=== PATIENT | female | born 1970 | race Caucasian/White ===

== ENCOUNTER 2016-05-23 10:25 | Emergency (ER) | payer SELFPAY ==
[~2016-05-23] VITALS: Ht 157.5 cm; Wt 69.3 kg
[~2016-05-23 10:25] MED LIST: CIPR500T2 PO; LORT5TAB PO; Z.0.NO CURRENT MEDS; ZOFR4TAB3 SL
[2016-05-23 10:35] VITALS: BP 134/95; PULSE 76; RESP 16; TEMP 97.9; O2SAT 97
[2016-05-23] MEDS ORDERED: CLIN1CAP6 PO (11:12)
[2016-05-23] MEDS ORDERED: IBUP800T23 PO (11:12)
[2016-05-23] MEDS ORDERED: PERI0.126 SWISH-SPIT (11:12)
[2016-05-23] MEDS ORDERED: traMADol HCL 50 MG TAB PO ONE (11:15)
--- NOTE | 2016-05-23 11:18 | PD ---
HPI Chief Complaint: Oral / Dental Pain or Problem Time Seen by Provider: 11:12 Travel History International Travel<30 days: No Contact w/Intl Traveler<30days: No Traveled to known affect area: No History of Present Illness HPI 46-year-old female presents to the emergency room for evaluation of right lower dental pain and swelling. Pain started one week ago. Swelling started yesterday. Pain is worsened with chewing and drinking. Improve slightly with Tylenol and ibuprofen. She denies any drainage, fever, nausea, vomiting, difficulty breathing, or dysphasia. Reports associated chills last night. She went to an emergency dental clinic but they were unable to get her in so she came to the emergency room. She has an appointment with a dentist for follow- up. PFSH Past Medical History Diminished Hearing: No Migraines: Yes Influenza Vaccination: No ?: Not LMP: apr Social History Alcohol Use: Yes (OCC) Tobacco Use: Yes (1 PPD) Substance Use: No Allergies-Medications (Allergen,Severity, Reaction): Coded Allergies: No Known Allergies (Verified , 05/23/16) Reported Meds & Prescriptions Reported Meds & Active Scripts Active Peridex Liq (Chlorhexidine Gluconate (Mouth) Liq) 0.12% Soln 15 Ml SWISH-SPIT BID Clindamycin (Clindamycin HCl) 300 Mg Cap 300 Mg PO Q6HR 10 Days Review of Systems Except as stated in HPI: all other systems reviewed are Neg Physical Exam Narrative GENERAL: Well-nourished, well-developed female in no acute distress. Afebrile. Ambulatory. SKIN: Warm and dry. HEAD: Normocephalic. EYES: No scleral icterus. No injection or drainage. NECK: Supple, trachea midline. No JVD or lymphadenopathy. DENTAL: Mild to moderate decay throughout. Multiple fillings in place. No significant erythema or obvious abscess to drain. No malocclusion. No submental, submandibular, or buccal induration. Mild right-sided buccal edema. Data Data Last Documented VS Vital Signs Date Time Temp Pulse Resp B/P Pulse Ox O2 Delivery O2 Flow Rate FiO2 05/23/16 10:35 97.9 76 16 134/95 97 Orders Tramadol (Ultram) (05/23/16 11:15) [facility] Medical Decision Making Medical Screen Exam Complete: Yes Emergency Medical Condition: Yes Medical Record Reviewed: Yes Differential Diagnosis Dentalgia versus dental decay versus gingivitis Narrative Course 46-year-old female presents to the emergency room for evaluation of right lower dental pain and edema. Physical exam reveals mild to moderate decay throughout. Multiple fillings in place. No significant erythema or obvious abscess to drain. Mild right-sided buccal edema. No evidence of Esau's. Patient given tramadol in the emergency room. Discharged with prescriptions for clindamycin, Peridex oral rinse, and person. Told to follow up with her dentist or return for worsening symptoms. She understands and agrees to plan. Diagnosis Primary Impression: Dental abscess Referrals: Dentist Patient Instructions: Dental Abscess (ED), General Instructions Additional Instructions: Rest and drink plenty of fluids. Clindamycin as directed, until gone. Peridex oral rinse as directed. Take Tylenol and/or ibuprofen with food as directed, as needed for pain. Apply ice to the affected area for 20 minutes at a time, as needed for pain and swelling. Follow-up with a dentist. Return to the emergency room for worsening symptoms. Med/Other Pt SpecificInfo: Prescription(s) given Scripts Ibuprofen 800 Mg Ceo900 Mg PO Q8H PRN (PAIN SCALE 1 TO 10) #21 TAB Ref 0 Prov:Madi Tinoco MD 05/23/16 Chlorhexidine Gluconate (Mouth) Liq (Peridex Liq)0.12% Soln15 Ml SWISH-SPIT BID #473 ML Ref 0 Prov:Madi Tinoco MD 05/23/16 Clindamycin 300 Mg Jfx989 Mg PO Q6HR 10 Days Ref 0 Prov:Madi Tinoco MD 05/23/16 Disposition: 01 DISCHARGE HOME Condition: Stable Ching Barrera May 23, 2016 11:18
== END 2016-05-23 11:58 | disposition home or self-care (01) ==
LOC: PHEFT 10:25
DX: F17.210 Nicotine dependence, cigarettes, uncomplicated (principal); K04.7 Periapical abscess without sinus; K02.9 Dental caries, unspecified
CPT/HCPCS: 99282

== ENCOUNTER 2016-05-24 23:06 | Inpatient (IN) | payer SELFPAY ==
[~2016-05-24] VITALS: Ht 157.5 cm; Wt 69.0 kg
[~2016-05-24 23:06] MED LIST changes: +CLIN1CAP6 PO; +IBUP800T23 PO; +PERI0.126 SWISH-SPIT
[2016-05-24 23:09] VITALS: BP 146/88; PULSE 85; RESP 14; TEMP 98.6; O2SAT 97
[2016-05-25] MEDS ORDERED: SODIUM CHLOR 0.9% 1000 ML INJ 1,000 ML IV SCH ×3 (00:49→03:35)
--- NOTE | 2016-05-25 00:56 | PD ---
HPI Chief Complaint: Oral / Dental Pain or Problem Time Seen by Provider: 00:45 Travel History International Travel<30 days: No Contact w/Intl Traveler<30days: No Traveled to known affect area: No History of Present Illness HPI 46-year-old female presents for evaluation of dental infection. She reports that on May 22 she developed a toothache in the right mandibular molar region. She was seen at [facility] on May 23 prescribed clindamycin 300 mg QID, peridex solution which She which she has been using. She reports that the swelling and pain has worsened which prompted evaluation. She denies pain in her right jaw line which radiates down the neck. She endorses occasional chills, no objective fevers. She has been taking the medication as prescribed. Denies any history of diabetes, immunocompromise. Denies any chance of . She has no local primary care physician. No other complaints at this time. PFSH Past Medical History Diminished Hearing: No Immunizations Current: Yes Migraines: Yes ?: Not LMP: 05/05/16 Past Surgical History Surgical History: No Previous Surgery Social History Alcohol Use: Yes (OCC) Tobacco Use: Yes (2 PPD) Substance Use: No Allergies-Medications (Allergen,Severity, Reaction): Coded Allergies: No Known Allergies (Verified , 05/25/16) Reported Meds & Prescriptions Reported Meds & Active Scripts Active Ibuprofen 800 Mg Tab 800 Mg PO Q8H PRN Peridex Liq (Chlorhexidine Gluconate (Mouth) Liq) 0.12% Soln 15 Ml SWISH-SPIT BID Clindamycin (Clindamycin HCl) 300 Mg Cap 300 Mg PO Q6HR 10 Days Review of Systems Except as stated in HPI: all other systems reviewed are Neg Physical Exam Narrative GENERAL: Well-developed well-nourished female in no acute distress SKIN: Warm and dry. HEAD: Atraumatic. Normocephalic. EYES: Pupils equal and round. No scleral icterus. No injection or drainage. ENT: No nasal bleeding or discharge. Mucous membranes pink and moist. There is soft tissue swelling in the right mandibular gingival and facial region. There is erythema along the right mandible and along the anterior neck. Tender anterior cervical lymph nodes are present. Trismus makes examination of the oral compartment difficult. There is no sublingual edema or tenderness. There is no stridor, drooling, muffled voice. There is tenderness to palpation along the right mandibular gum line. NECK: Trachea midline. No JVD. CARDIOVASCULAR: Regular rate and rhythm. No murmur appreciated. RESPIRATORY: No accessory muscle use. Clear to auscultation. Breath sounds equal bilaterally. GASTROINTESTINAL: Abdomen soft, non-tender, nondistended. Hepatic and splenic margins not palpable. MUSCULOSKELETAL: No obvious deformities. NEUROLOGICAL: Awake and alert. No obvious cranial nerve deficits. Motor grossly within normal limits. Normal speech. Data Data Last Documented VS Vital Signs Date Time Temp Pulse Resp B/P Pulse Ox O2 Delivery O2 Flow Rate FiO2 05/25/16 01:38 62 18 130/77 97 Room Air 05/24/16 23:[address] Soft Tiss Neck W Iv Cont (05/25/16 ) Complete Blood Count With Diff (05/25/16 00:49) Comprehensive Metabolic Panel (05/25/16 00:49) Prothrombin Time / Inr (Pt) (05/25/16 00:49) Act Partial Throm Time (Ptt) (05/25/16 00:49) Lactic Acid Sepsis Protocol (05/25/16 00:49) Blood Culture (05/25/16 00:49) Sodium Chlor 0.9% 1000 Ml Inj (Ns 1000 M (05/25/16 00:49) Sodium Chlor 0.9% 1000 Ml Inj (Ns 1000 M (05/25/16 00:49) Clindamycin Inj (Cleocin Inj) (05/25/16 01:00) Dexamethasone Inj (Decadron Inj) (05/25/16 01:00) Iohexol 350 Inj (Omnipaque 350 Inj) (05/25/16 02:35) Admit Order (Ed Use Only) (05/25/16 03:36) Admit To Inpatient (05/25/16 ) Vital Signs (Adult) Q4H (05/25/16 03:35) Activity Oob Ad Kailee (05/25/16 03:35) Diet Regular Basic (05/25/16 Breakfast) Sodium Chlor 0.9% 1000 Ml Inj (Ns 1000 M (05/25/16 03:35) Sodium Chloride 0.9% Flush (Ns Flush) (05/25/16 03:45) Sodium Chloride 0.9% Flush (Ns Flush) (05/25/16 09:00) Ondansetron Inj (Zofran Inj) (05/25/16 03:45) Bisacodyl Supp (Dulcolax Supp) (05/25/16 03:45) Comprehensive Metabolic Panel (05/26/16 06:00) Complete Blood Count With Diff (05/26/16 06:00) Scd Bilateral/Knee High MILY.BID (05/25/16 03:35) Mal Bilateral/Knee High MILY.QSHIFT (05/25/16 03:35) Acetaminophen (Tylenol) (05/25/16 03:45) Acetamin-Hydrocod 325-5 Mg ([place] 5-325 (05/25/16 03:45) Morphine Inj (Morphine Inj) (05/25/16 03:45) Inpatient Certification (05/25/16 ) Labs Laboratory Tests Test 05/25/16 05/25/16 00:05 01:00 Lactic Acid Level 0.6 mmol/L White Blood Count 9.7 TH/MM3 Red Blood Count 4.22 MIL/MM3 Hemoglobin 13.2 GM/DL Hematocrit 37.7 % Mean Corpuscular Volume 89.3 FL Mean Corpuscular Hemoglobin 31.4 PG Mean Corpuscular Hemoglobin 35.1 % Concent Red Cell Distribution Width 13.6 % Platelet Count 225 TH/MM3 Mean Platelet Volume 9.1 FL Neutrophils (%) (Auto) 68.2 % Lymphocytes (%) (Auto) 19.6 % Monocytes (%) (Auto) 10.3 % Eosinophils (%) (Auto) 1.4 % Basophils (%) (Auto) 0.5 % Neutrophils # (Auto) 6.6 TH/MM3 Lymphocytes # (Auto) 1.9 TH/MM3 Monocytes # (Auto) 1.0 TH/MM3 Eosinophils # (Auto) 0.1 TH/MM3 Basophils # (Auto) 0.0 TH/MM3 CBC Comment DIFF FINAL Differential Comment Prothrombin Time 9.7 SEC Prothromb Time International 0.9 RATIO Ratio Activated Partial 27.3 SEC Thromboplast Time Sodium Level 140 MEQ/L Potassium Level 3.9 MEQ/L Chloride Level 107 MEQ/L Carbon Dioxide Level 26.1 MEQ/L Anion Gap 7 MEQ/L Blood Urea Nitrogen 13 MG/DL Creatinine 0.87 MG/DL Estimat Glomerular Filtration 71 ML/MIN Rate Random Glucose 97 MG/DL Calcium Level 8.9 MG/DL Total Bilirubin 0.3 MG/DL Aspartate Amino Transf 8 U/L (AST/SGOT) Alanine Aminotransferase 24 U/L (ALT/SGPT) Alkaline Phosphatase 59 U/L Total Protein 7.0 GM/DL Albumin 3.6 GM/DL [facility] Medical Decision Making Medical Screen Exam Complete: Yes Emergency Medical Condition: Yes Medical Record Reviewed: Yes Interpretation(s) CT soft tissue neck with contrast CONCLUSION: Soft tissue thickening adjacent to the anterior right mandible without evidence of drainable fluid collection. No bony destruction of the mandible. Irregular shape hypodense lesion in the right lower thyroid. CBC unremarkable CMP unremarkable, lactic acid 0.6 Differential Diagnosis Periodontal abscess, submandibular abscess, Esau angina, facial cellulitis, sepsis Narrative Course 46-year-old female presents with worsening soft tissue swelling, redness and pain in the right mandibular and neck region despite being on outpatient clindamycin treatment for the past 1.5 days. On examination she has a significant amount of soft tissue swelling the right mandibular region, erythema of the skin on the anterior neck, trismus and tenderness to palpation to the right gingival mucosa. Plan is for basic lab work, blood cultures, CT soft tissue neck with contrast. IV fluids, Decadron and clindamycin have been initiated. Abrasions lab work and imaging studies have been reviewed and found to be reassuring with no discrete drainable abscess formation. I'm concerned because the patient's symptoms have been worsening despite maximal outpatient oral antibiotic treatment. Therefore the patient will be admitted for failed outpatient therapy of cellulitis. Diagnosis Primary Impression: Cellulitis Qualified Code: L03.221 - Cellulitis of neck Additional Impression: Dental infection Admitting Information Admitting Physician Requests: Admit Surjit Patel May 25, 2016 00:55
[2016-05-25] MEDS ORDERED: CLINDAMYCIN INJ 600 MG in SODIUM CHLORIDE 0.9% INJ 100 ML IV ONE (01:00)
[2016-05-25] MEDS ORDERED: DEXAMETHASONE SOD PHOS 4 MG/ML VIAL IV PUSH ONE (01:00)
[2016-05-25 01:22] LABS: AUTOMATED NEUTROPHIL # 6.6 TH/MM3 (1.8-7.7); BASOPHIL % 0.5 % (0.0-2.0); EOSINOPHIL # 0.1 TH/MM3 (0-0.4); EOSINOPHIL % 1.4 % (0.0-4.0); HEMATOCRIT 37.7 % (35.0-46.0); HEMO FLAGS DIFF FINAL; LYMPH % 19.6 % (9.0-44.0); LYMPHOCYTE # 1.9 TH/MM3 (1.0-4.8); MEAN CELL VOLUME 89.3 FL (80.0-100.0); MEAN CORPUSCULAR HEMOGLOBIN 31.4 PG (27.0-34.0); MEAN CORPUSCULAR HGB CONC 35.1 % (32.0-36.0); MONO % 10.3 % (0.0-8.0); NEUT % 68.2 % (16.0-70.0); PLATELET COUNT 225 TH/MM3 (150-450); RED BLOOD COUNT 4.22 MIL/MM3 (4.00-5.30); RED CELL DISTRIBUTION WIDTH 13.6 % (11.6-17.2); WHITE BLOOD COUNT 9.7 TH/MM3 (4.0-11.0)
[2016-05-25 01:29] LABS: APTT (PATIENT) 27.3 SEC (24.3-30.1); INTERNATIONAL NORMALIZED RATIO 0.9 RATIO; PROTHROMBIN TIME - PATIENT 9.7 SEC (9.8-11.6)
[2016-05-25 01:38] VITALS: BP 130/77; PULSE 62; RESP 18; O2SAT 97
[2016-05-25 01:39] LABS: ALT (GPT) 24 U/L (10-53); ANION GAP 7 MEQ/L (5-15); AST (GOT) 8 U/L (15-37); BICARBONATE 26.1 MEQ/L (21.0-32.0); BLOOD UREA NITROGEN 13 MG/DL (7-18); CHLORIDE 107 MEQ/L (98-107); GLOMERULAR FILTRATION RATE 71 ML/MIN (>89); POTASSIUM 3.9 MEQ/L (3.5-5.1); SODIUM (NA) 140 MEQ/L (136-145)
[2016-05-25 01:41] LABS: ALKALINE PHOSPHATASE 59 U/L (45-117); TOTAL BILIRUBIN ADULT 0.3 MG/DL (0.2-1.0)
[2016-05-25] MEDS ORDERED: IOHEXOL 350 MG/ML 10 ML VIAL (for RAD DIAG) IV ONE (02:35)
--- NOTE | 2016-05-25 03:24 | RADRPT ---
EXAM DATE/TIME: 05/25/2016 02:33 [place] COMPARISON: No previous studies available for comparison. INDICATIONS : Right side facial and neck swelling following tooth pain. IV CONTRAST: 70 cc Omnipaque 350 (iohexol) IV RADIATION DOSE: 15.61 CTDIvol (mGy) MEDICAL HISTORY : None SURGICAL HISTORY : None. ENCOUNTER: Initial ACUITY: 3 days PAIN SCALE: 1/10 LOCATION: Right neck TECHNIQUE: Volumetric scanning of the neck was performed. Using automated exposure control and adjustment of th e mA and/or kV according to patient size, radiation dose was kept as low as reasonably achievable to obtain optimal diagnostic quality images. FINDINGS: The prevertebral soft tissues are normal in thickness. There several bilateral neck nodes in the lat eral compartment which measure 1 cm or less. There is a solitary no superficial to the right sternoc leidomastoid muscle measuring 8 mm. Several bilateral submandibular nodes measure up to 1.5 cm. The re is soft tissue thickening superficial to the anterior body of the right mandible. No periosteal d estruction is seen. No radiopaque foreign bodies. The parotid glands are symmetric in size. There is a low density irregular shaped lesion in the lower pole of the right lobe of the thyroid gland whi ch measures up to 1.5 cm. CONCLUSION: Soft tissue thickening adjacent to the anterior right mandible without evidence of drainable fluid co llection. No bony destruction of the mandible. Irregular shape hypodense lesion in the right lower thyroid. Ramana Etienne MD on May 25, 2016 at 3:08 Board Certified Radiologist. This report was verified electronically.
[2016-05-25] MEDS ORDERED: BISACODYL 10 MG SUPP PR PRN (03:45)
[2016-05-25] MEDS ORDERED: ACETAMINOPHEN/HYDROcodone 325 MG/5 MG TAB PO PRN (03:45)
[2016-05-25] MEDS ORDERED: ONDANSETRON HCL 4 MG/2 ML VIAL IVP PRN (03:45)
[2016-05-25] MEDS ORDERED: MORPHINE SULFATE 4 MG/ML INJ IV PRN (03:45)
[2016-05-25] MEDS ORDERED: ACETAMINOPHEN 325 MG TAB PO PRN (03:45)
[2016-05-25] MEDS ORDERED: SODIUM CHLORIDE 0.9% FLUSH 5 ML FLUSH FLUSH PRN (03:45)
--- NOTE | 2016-05-25 05:01 | HHI.HP ---
HPI Service [facility] Primary Care Physician No Primary Care Physician Admission Diagnosis Cellulitis, dental infection, failed outpatient therapy Diagnoses: (1) Dental abscess Diagnosis: Principal (2) Cellulitis Diagnosis: Principal (3) Failure of outpatient treatment Diagnosis: Principal (4) Tobacco abuse Diagnosis: Principal Travel History International Travel<30 Days: No Contact w/Intl Traveler <30 Da: No Traveled to Known Affected Are: No History of Present Illness This is a 46-year-old female with no significant PMH of confusion ER with complaints of right-sided facial and dental pain for approx 1wk. Seen in ER on 05/23/16 for similar symptoms, found to have dental infection and d/c'd home w/ Rx for Peridez, Clindamycin 300mg q6h and Ibuprofen w/ instructions to follow w / Dentist as outpatient. Returns to ER w/ worsening symptoms, reports compliance w/ medications. Denies fever or chills. On arrival, BP 134/95, HR 76, O2 sat 97% on RA, Afebrile. CBC unremarkable. Chemistry unremarkable. CT Neck soft tissue thickening adjacent to the anterior right mandible, no evidence of drainable fluid collection. S/p IV Clinda and Blood Cultures in ER. Review of Systems Other ROS: 14 point review of systems otherwise negative. Past Family Social History Past Medical History PMH: None Past Surgical History PAST SURGICAL HISTORY: None Allergies: Coded Allergies: No Known Allergies (Verified , 05/25/16) Family History PAST FAMILY HISTORY: Reviewed. No h/o DM or CAD Social History PAST SOCIAL HISTORY: Occasional alcohol. Smokes 1/2ppd. Negative for drugs. Physical Exam Vital Signs Vital Signs Date Time Temp Pulse Resp B/P Pulse Ox O2 Delivery O2 Flow Rate FiO2 05/25/16 01:38 62 18 130/77 97 Room Air 05/24/16 23:09 98.6 85 14 146/88 97 Room Air Physical Exam PE: GENERAL: Middle-aged female in no acute distress. HEENT: PERRLA, EOMI. No scleral icterus or conjunctival pallor. No lid lag or facial droop. Right facial swelling/erythema mandibular region, tenderness to palpation. CARDIOVASCULAR: Regular rate and rhythm. No obvious murmurs to auscultation. No chest tenderness to palpation. RESPIRATORY: No obvious rhonchi or wheezing. Clear to auscultation. Breath sounds equal bilaterally. GASTROINTESTINAL: Abdomen soft, non-tender, nondistended. BS normal. MUSCULOSKELETAL: Extremities without clubbing, cyanosis, or edema. No obvious deformities. NEUROLOGICAL: Awake, alert and oriented x4. No focal neurologic deficits. Moving both upper and lower extremities spontaneously. Laboratory Laboratory Tests Test 05/25/16 05/25/16 00:05 01:00 Lactic Acid Level 0.6 White Blood Count 9.7 Red Blood Count 4.22 Hemoglobin 13.2 Hematocrit 37.7 Mean Corpuscular Volume 89.3 Mean Corpuscular Hemoglobin 31.4 Mean Corpuscular Hemoglobin 35.1 Concent Red Cell Distribution Width 13.6 Platelet Count 225 Mean Platelet Volume 9.1 Neutrophils (%) (Auto) 68.2 Lymphocytes (%) (Auto) 19.6 Monocytes (%) (Auto) 10.3 Eosinophils (%) (Auto) 1.4 Basophils (%) (Auto) 0.5 Neutrophils # (Auto) 6.6 Lymphocytes # (Auto) 1.9 Monocytes # (Auto) 1.0 Eosinophils # (Auto) 0.1 Basophils # (Auto) 0.0 CBC Comment DIFF FINAL Differential Comment Prothrombin Time 9.7 Prothromb Time International 0.9 Ratio Activated Partial 27.3 Thromboplast Time Sodium Level 140 Potassium Level 3.9 Chloride Level 107 Carbon Dioxide Level 26.1 Anion Gap 7 Blood Urea Nitrogen 13 Creatinine 0.87 Estimat Glomerular Filtration 71 Rate Random Glucose 97 Calcium Level 8.9 Total Bilirubin 0.3 Aspartate Amino Transf 8 (AST/SGOT) Alanine Aminotransferase 24 (ALT/SGPT) Alkaline Phosphatase 59 Total Protein 7.0 Albumin 3.6 Date/Time Procedure Status Source Growth 05/25/16 01:00 Aerobic Blood Culture Received Blood Peripheral Pending 05/25/16 01:00 Anaerobic Blood Culture Received Blood Peripheral Pending Result Diagram: 05/25/169905/25/1699 Assessment and Plan Problem List: (1) Dental abscess ICD Code: K04.7 Status: Acute (2) Cellulitis ICD Code: L03.90 Status: Acute (3) Failure of outpatient treatment ICD Code: Z78.9 Status: Acute (4) Tobacco abuse ICD Code: Z72.0 Status: Acute Assessment and Plan A/P: 1. Dental Abscess/Facial Cellulitis: symptoms ongoing/progressive for approx 1wk. CT Neck w/ soft tissue thickening adjacent to anterior right mandible, no drainable fluid collection, images reviewed by me. S/p IV Decadron, IV Clinda and Blood Cultures in ER. Continue w/ IV Abx, Follow up cultures. Analgesics as needed. 2. Failed Outpatient Tx: Seen in ER 05/23/16 for similar symptoms, d/c'd on Clinda 300mg po q6h w/ progression of infection. 3. Tobacco Abuse: Pt counselled. NicoDerm prn if needed. 4. DVT Prophylaxis: SCD/Teds. 5. Social work for d/c planning as needed. 6. Case discussed w/ ER physician at length. Physician Certification 2 Midnight Certification Type: Admission for Inpatient Services Order for Inpatient Services The services are ordered in accordance with Medicare regulations or non- Medicare payer requirements, as applicable. In the case of services not specified as inpatient-only, they are appropriately provided as inpatient services in accordance with the 2-midnight benchmark. Estimated LOS (days): 2 days is the estimated time the patient will need to remain in the hospital, assuming treatment plan goals are met and no additional complications. Post-Hospital Plan: Home Problem Qualifiers (1) Cellulitis: Qualified Code: L03.221 - Cellulitis of neck Daniela Chanel MD May 25, 2016 05:01
[2016-05-25 06:07] VITALS: BP 115/77; PULSE 84; RESP 18; TEMP 98.4; O2SAT 98
[2016-05-25 07:55] VITALS: BP 110/58; PULSE 71; RESP 16; TEMP 98.8; O2SAT 92
--- NOTE | 2016-05-25 08:58 | HHI.PR ---
Subjective Remarks Follow up for dental infection. The patient presented back to the ED because she was concerned the infection might go down to her chest. The patient reports her facial swelling is 2550 percent better overnight on IV antibiotics and steroids. She denies any shortness of breath. She does report some throat swelling, but denies any problems eating or swallowing. She has not seen a dentist yet, but has an appointment to see one on Friday. Objective Vitals Vital Signs Date Time Temp Pulse Resp B/P Pulse Ox O2 Delivery O2 Flow Rate FiO2 05/25/16 07:55 98.8 71 16 110/58 92 05/25/16 06:07 98.4 84 18 115/77 98 Room Air 05/25/16 06:01 18 05/25/16 01:38 62 18 130/77 97 Room Air 05/24/16 23:09 98.6 85 14 146/88 97 Room Air Result Diagram: 05/25/16 0100 05/25/16 0100 Objective Remarks GENERAL: Well-developed well-nourished. In no acute distress. SKIN: Warm and dry. Right submandibular swelling. HEENT: Normocephalic. Pupils equal and round. Mucous membranes pink and moist. Broken right lower premolar. Airway patent. CARDIOVASCULAR: Regular rate and rhythm. No murmur appreciated. RESPIRATORY: No accessory muscle use. Clear to auscultation. Breath sounds equal bilaterally. GASTROINTESTINAL: Abdomen soft, non-tender, nondistended. Bowel sounds x4. MUSCULOSKELETAL: No obvious deformities. No clubbing or cyanosis. No edema. NEUROLOGICAL: Awake and alert. No focal neurological deficits. Moves upper and lower extremities spontaneously. Normal speech. PSYCHIATRIC: Appropriate mood and affect; insight and judgment normal. A/P Problem List: (1) Dental abscess ICD Code: K04.7 Status: Acute (2) Cellulitis ICD Code: L03.90 Status: Acute (3) Failure of outpatient treatment ICD Code: Z78.9 Status: Acute (4) Tobacco abuse ICD Code: Z72.0 Status: Acute Assessment and Plan 46-year-old female with no significant PMH of confusion ER with complaints of right-sided facial and dental pain for approx 1wk Dental infection/Facial Cellulitis: Symptoms ongoing/progressive for approx 1wk. CT Neck w/ soft tissue thickening adjacent to anterior right mandible, no drainable fluid collection. Limited improvement on oral antibiotics as outpatient, significant improvement on IV antibiotics overnight. S/p IV Decadron, IV Clinda and Blood Cultures in ER. Continue w/ IV Abx. Give additional IV Decadron 2. Analgesics as needed. Need dental follow up as outpatient if improves with antibiotics, OMFS evaluation as inpatient if continued worsening. Tobacco Abuse: Patient counseling. DVT Prophylaxis: SCD/Teds. Written by Richard Chiu, acting as scribe for Dr. Porter on 05/25/16 at 09:00. The documentation accurately reflects the work performed [id number] by me on at 0900 Discharge Planning Possible discharge later today if patient continues to improve and remained stable. Problem Qualifiers (1) Cellulitis: Qualified Code: L03.221 - Cellulitis of neck Richard Chiu May 25, 2016 08:58 Ralph Porter MD May 25, 2016 16:30
[2016-05-25] MEDS: CLINDAMYCIN INJ 900 MG in SODIUM CHLORIDE 0.9% INJ 100 ML IV SCH ×2 (09:00→16:19)
[2016-05-25] MEDS ORDERED: SODIUM CHLORIDE 0.9% FLUSH 5 ML FLUSH FLUSH SCH (09:00)
[2016-05-25] MEDS: DEXAMETHASONE SOD PHOS 4 MG/ML VIAL IV PUSH SCH ×2 (10:15→12:00)
[2016-05-25 12:00] VITALS: BP 91/52; PULSE 82; RESP 16; TEMP 98.1; O2SAT 96
[2016-05-25 16:00] VITALS: BP 110/62; PULSE 75; RESP 16; TEMP 98.3; O2SAT 92
== END 2016-05-25 07:00 | disposition home or self-care (01) | DRG 603 ==
LOC: NEPB 23:06 → NEDA 05-25 03:37 → NEDH 05-25 07:59
PROVIDERS: ADMIT Internal Medicine; ATTEND Internal Medicine
DX: L03.221 Cellulitis of neck (principal); L03.211 Cellulitis of face; K04.7 Periapical abscess without sinus; F17.210 Nicotine dependence, cigarettes, uncomplicated
CPT/HCPCS: 70491; 80053; 83605; 85025; 85610; 85730; 87040; 96365; 96366; 96375; J1100; J7030; Q9967

== ENCOUNTER 2017-02-06 09:41 | Observation (INO) | payer SELFPAY ==
[~2017-02-06] VITALS: Ht 157.5 cm; Wt 65.0 kg
[~2017-02-06 09:41] MED LIST changes: -CIPR500T2 PO; -LORT5TAB PO; -Z.0.NO CURRENT MEDS; -ZOFR4TAB3 SL
[2017-02-06 09:44] VITALS: BP 140/86; PULSE 84; RESP 16; TEMP 98.2; O2SAT 98
[2017-02-06] MEDS ORDERED: SODIUM CHLORIDE 0.9% FLUSH 10 ML FLUSH IV FLUSH PRN ×2 (10:30→13:15)
[2017-02-06] MEDS ORDERED: MORPHINE SULFATE 4 MG/ML INJ IV PUSH ONE (10:30)
[2017-02-06] MEDS ORDERED: ONDANSETRON HCL 4 MG/2 ML VIAL IVP ONE (10:30)
[2017-02-06 11:02] LABS: BASOPHIL # 0.1 TH/MM3 (0-0.2); BASOPHIL % 0.3 % (0.0-2.0); EOSINOPHIL % 0.2 % (0.0-4.0); HEMATOCRIT 38.4 % (35.0-46.0); HEMO FLAGS DIFF FINAL; LYMPH % 7.1 % (9.0-44.0); LYMPHOCYTE # 1.3 TH/MM3 (1.0-4.8); MEAN CELL VOLUME 88.2 FL (80.0-100.0); MEAN CORPUSCULAR HEMOGLOBIN 28.8 PG (27.0-34.0); MEAN CORPUSCULAR HGB CONC 32.6 % (32.0-36.0); NEUT % 84.4 % (16.0-70.0); PLATELET COUNT 283 TH/MM3 (150-450); RED BLOOD COUNT 4.35 MIL/MM3 (4.00-5.30); WHITE BLOOD COUNT 17.7 TH/MM3 (4.0-11.0)
--- NOTE | 2017-02-06 11:06 | PD ---
HPI Chief Complaint: Abdominal Pain Time Seen by Provider: 10:04 Travel History International Travel<30 days: No Contact w/Intl Traveler<30days: No Traveled to known affect area: No History of Present Illness HPI states has not felt right for past 15hrs, states oriignally periumbilical discomfort, then became more rlq area discomfort, pressure, 11/25, no alleviating /aggravating factors... PFSH Past Medical History Medical History: Denies Significant Hx Cancer: No Cardiovascular Problems: No Diminished Hearing: No Endocrine: No Genitourinary: No Musculoskeletal: No Neurologic: No Reproductive: No Respiratory: No Immunizations Current: Yes Migraines: Yes ?: Not LMP: 01/23/17 Social History Alcohol Use: Yes (OCC) Tobacco Use: Yes (1/2 PPD) Substance Use: No Allergies-Medications (Allergen,Severity, Reaction): Coded Allergies: No Known Allergies (Verified , 02/06/17) Reported Meds & Prescriptions Reported Meds & Active Scripts Active Review of Systems Except as stated in HPI: all other systems reviewed are Neg Gastrointestinal: Positive: Nausea, Abdominal Pain Physical Exam Narrative GENERAL: SKIN: Warm and dry. HEAD: Atraumatic. Normocephalic. EYES: Pupils equal and round. No scleral icterus. No injection or drainage. ENT: No nasal bleeding or discharge. Mucous membranes pink and moist. NECK: Trachea midline. No JVD. CARDIOVASCULAR: Regular rate and rhythm. RESPIRATORY: No accessory muscle use. Clear to auscultation. Breath sounds equal bilaterally. GASTROINTESTINAL: Abdomen soft, non-tender, nondistended. but ttpercussion RLQ MUSCULOSKELETAL: Extremities without clubbing, cyanosis, or edema. No obvious deformities. NEUROLOGICAL: Awake and alert. No obvious cranial nerve deficits. Motor grossly within normal limits. Five out of 5 muscle strength in the arms and legs. Normal speech. PSYCHIATRIC: Appropriate mood and affect; insight and judgment normal. Data Data Last Documented VS Vital Signs Date Time Temp Pulse Resp B/P (MAP) Pulse Ox O2 Delivery O2 Flow Rate FiO2 02/06/17 09:44 98.2 84 16 140/86 (104) 98 Orders Orders Complete Blood Count With Diff (02/06/17 10:20) Comprehensive Metabolic Panel (02/06/17 10:20) Lipase (02/06/17 10:20) Ct Abd/Pel W/O Iv Contrast (02/06/17 10:20) Iv Access Insert/Monitor (02/06/17 10:20) Ecg Monitoring (02/06/17 10:20) Oximetry (02/06/17 10:20) NPO (02/06/17 10:20) Morphine Inj (Morphine Inj) (02/06/17 10:30) Ondansetron Inj (Zofran Inj) (02/06/17 10:30) Sodium Chloride 0.9% Flush (Ns Flush) (02/06/17 10:30) Ed Urine Pregnancytest Poc (02/06/17 10:20) Urinalysis - C+S If Indicated (02/06/17 10:49) Piperacil-Tazo 3.375 Gm Premix (Zosyn 3. (02/06/17 12:15) Labs Laboratory Tests Test 02/06/17 10:42 02/06/17 11:03 White Blood Count 17.7 TH/MM3 Red Blood Count 4.35 MIL/MM3 Hemoglobin 12.5 GM/DL Hematocrit 38.4 % Mean Corpuscular Volume 88.2 FL Mean Corpuscular Hemoglobin 28.8 PG Mean Corpuscular Hemoglobin Concent 32.6 % Red Cell Distribution Width 14.0 % Platelet Count 283 TH/MM3 Mean Platelet Volume 8.9 FL Neutrophils (%) (Auto) 84.4 % Lymphocytes (%) (Auto) 7.1 % Monocytes (%) (Auto) 8.0 % Eosinophils (%) (Auto) 0.2 % Basophils (%) (Auto) 0.3 % Neutrophils # (Auto) 15.0 TH/MM3 Lymphocytes # (Auto) 1.3 TH/MM3 Monocytes # (Auto) 1.4 TH/MM3 Eosinophils # (Auto) 0.0 TH/MM3 Basophils # (Auto) 0.1 TH/MM3 CBC Comment DIFF FINAL Differential Comment Blood Urea Nitrogen 11 MG/DL Creatinine 0.88 MG/DL Random Glucose 105 MG/DL Total Protein 7.1 GM/DL Albumin 3.8 GM/DL Calcium Level 8.5 MG/DL Alkaline Phosphatase 67 U/L Aspartate Amino Transf (AST/SGOT) 10 U/L Alanine Aminotransferase (ALT/SGPT) 30 U/L Total Bilirubin 0.5 MG/DL Sodium Level 136 MEQ/L Potassium Level 3.9 MEQ/L Chloride Level 104 MEQ/L Carbon Dioxide Level 23.7 MEQ/L Anion Gap 8 MEQ/L Estimat Glomerular Filtration Rate 70 ML/MIN Lipase 75 U/L Urine Color YELLOW Urine Turbidity HAZY Urine pH 7.5 Urine Specific [place]am 1.016 Urine Protein TRACE mg/dL Urine Glucose (UA) NEG mg/dL Urine Ketones 10 mg/dL Urine Occult Blood NEG Urine Nitrite NEG Urine Bilirubin NEG Urine Urobilinogen LESS THAN 2.0 MG/DL Urine Leukocyte Esterase NEG Urine RBC 3 /hpf Urine WBC 1 /hpf Urine Squamous Epithelial Cells 4 /hpf Urine Bacteria RARE /hpf Urine Mucus FEW /lpf Urine Yeast (Budding) RARE Microscopic Urinalysis Comment CULT NOT INDICATED MDM Medical Decision Making Medical Screen Exam Complete: Yes Emergency Medical Condition: Yes Medical Record Reviewed: Yes Differential Diagnosis COLITIS V DIVERTICULITIS V APPY Narrative Course PATIENT FOUND TO HAVE EARLY FINDINGS OF APPY ON CT AND WITH HX AND WBC OF 17K COLLECTIVELY PATIENT IS FOUND TO HAVE APPY Diagnosis Primary Impression: Acute appendicitis Qualified Codes: K35.80 - Unspecified acute appendicitis Admitting Information Admitting Physician Requests: Observation Monico Kimbrough MD Feb 06, 2017 10:20
[2017-02-06 11:24] LABS: BACTERIA, URINE RARE /hpf; BLOOD, URINE NEG (NEG); COMMENT (UR) CULT NOT INDICATED; CULTURE IF INDICATED CULT NOT INDICATED; GLUCOSE,URINE NEG (NEG); KETONE, URINE 10 mg/dL (NEG); MUCUS URINE FEW /lpf (OCC); NITRITE,URINE NEG (NEG); PH, URINE 7.5 (5.0-8.5); SQUAMOUS EPITHELIAL CELL URINE 4 /hpf (0-5); URINE COLOR YELLOW (YELLW/STRAW)
--- NOTE | 2017-02-06 11:32 | RADRPT ---
EXAM DATE/TIME: 02/06/2017 11:07 [facility] COMPARISON: No previous studies available for comparison. INDICATIONS : Right lower quadrant pain ORAL CONTRAST: No oral contrast ingested. RADIATION DOSE: 9.96 CTDIvol (mGy) MEDICAL HISTORY : None SURGICAL HISTORY : None. ENCOUNTER: Initial ACUITY: 1 day PAIN SCALE: 5/10 LOCATION: Right lower quadrant TECHNIQUE: Volumetric scanning of the abdomen and pelvis was performed. Using automated exposure control and ad justment of the mA and/or kV according to patient size, radiation dose was kept as low as reasonably achievable to obtain optimal diagnostic quality images. DICOM format image data is available electro nically for review and comparison. FINDINGS: There is an approximately 5 mm appendicolith in the proximal appendix. The appendix is minimally dist ended to about 11 mm and there is some very mild periappendiceal inflammatory change. Findings are ch aracteristic of an early ovarian mild appendicitis. Lung bases clear except minimal dependent atelectasis. No acute findings in the liver, spleen, adrena ls, kidneys or pancreas. No calcified gallstones or biliary ductal dilatation. No acute bony abnormal ities. CONCLUSION: 1. 5 mm appendicolith with very minimal dilatation of the appendix and minimal periappendiceal inflam matory change. Findings are characteristic of an early or mild appendicitis. No obstruction, free flu id or free air. Pablito Sutherland MD on February 06, 2017 at 11:25 Board Certified Radiologist. This report was verified electronically.
[2017-02-06 11:38] LABS: ANION GAP 8 MEQ/L (5-15); AST (GOT) 10 U/L (15-37); BICARBONATE 23.7 MEQ/L (21.0-32.0); BLOOD UREA NITROGEN 11 MG/DL (7-18); CHLORIDE 104 MEQ/L (98-107); GLOMERULAR FILTRATION RATE 70 ML/MIN (>89); POTASSIUM 3.9 MEQ/L (3.5-5.1); SODIUM (NA) 136 MEQ/L (136-145)
[2017-02-06 11:43] LABS: ALKALINE PHOSPHATASE 67 U/L (45-117); ALT (GPT) 30 U/L (10-53); TOTAL BILIRUBIN ADULT 0.5 MG/DL (0.2-1.0)
[2017-02-06] MEDS ORDERED: PIPERACIL-TAZO 3.375 GM PREMIX 50 ML IV ONE (12:15)
[2017-02-06] MEDS ORDERED: LACTATED RINGER'S 1000 ML INJ 2,000 ML IV ONE (12:57)
[2017-02-06] MEDS ORDERED: NEOSTIGMINE 3 MG/3 ML SYR IV ONE (12:57)
[2017-02-06] MEDS ORDERED: ROCURONIUM INJ 50 MG/5 ML SYRINGE IV PUSH ONE (12:57)
[2017-02-06] MEDS ORDERED: PHENYLEPH/NS 1000 MCG/10 ML SYR IV ONE (12:57)
[2017-02-06] MEDS ORDERED: LIDOCAINE HCL 1% PF 5 ML AMPULE OTHER ONE (12:57)
[2017-02-06] MEDS ORDERED: KETOROLAC TROMETHAMINE 60 MG/2 ML (IM) VIAL IM ONE (12:57)
[2017-02-06] MEDS ORDERED: ONDANSETRON HCL 4 MG/2 ML VIAL IV PUSH ONE (12:57)
[2017-02-06] MEDS ORDERED: DEXAMETHASONE SOD PHOS 4 MG/ML VIAL IV ONE (12:57)
[2017-02-06] MEDS ORDERED: GLYCOPYRROLATE 0.2 MG/ML VIAL IV ONE (12:57)
[2017-02-06] MEDS ORDERED: PROPOFOL 200 MG/20 ML AMP IV ONE (12:57)
[2017-02-06] MEDS ORDERED: SODIUM CHLOR 0.9% 1000 ML INJ 1,000 ML IV SCH ×2 (13:15→18:44)
[2017-02-06] MEDS ORDERED: MORPHINE SULFATE 4 MG/ML INJ IV PUSH PRN ×2 (13:15→18:45)
[2017-02-06] MEDS ORDERED: PIPERACIL-TAZO 3.375 GM PREMIX 50 ML IV SCH (14:00)
[2017-02-06 14:16] VITALS: BP 96/54; PULSE 70; RESP 20; O2SAT 100
[2017-02-06] MEDS ORDERED: METOPROLOL TARTRATE 25 MG TAB PO PRN (15:30)
[2017-02-06] MEDS ORDERED: LACTATED RINGER'S 1000 ML IV PRN (15:30)
[2017-02-06] MEDS ORDERED: INSULIN HUMAN REGULAR 1,000 UNITS/10 ML VIAL SQ PRN (15:30)
[2017-02-06] MEDS ORDERED: SODIUM CHLORID 0.9% 500 ML IV PRN (15:30)
[2017-02-06] MEDS ORDERED: CHLORHEXIDINE GLUCONATE 2 % 1 PACK (2 CLOTHS) TOPICAL PRN (15:30)
[2017-02-06] MEDS ORDERED: POVIDONE IODINE 5% (ANTISEPSIS KIT) 4 APPLICATIONS EACH NARE PRN (15:30)
--- NOTE | 2017-02-06 15:56 | HHI.HP ---
cc: Mckayla Austin MD HPI Service General Surgery Primary Care Physician No Primary Care Physician Admission Diagnosis ACUTE APPENDICITIS Chief Complaint: Abdominal pain x 15 hours History of Present Illness This is a 46-year-old female with no past medical history who presented to the emergency department after 15 hours of periumbilical and right lower quadrant abdominal pain. The patient did have associated nausea with no vomiting. The patient took a Gas-X with no relief of the pain. The patient took several doses of Destini Capulin with minimal relief. A CT abdomen pelvis was obtained which showed inflammation of the appendix and early acute appendicitis. Her white blood cell count is elevated at 17. A General Surgery admission has been requested for acute appendicitis and laparoscopic appendectomy. Review of Systems Constitutional: DENIES: Fatigue, Chills, Dizziness Endocrine: DENIES: Polydipsia, Polyuria, Polyphagia Eyes: DENIES: Diplopia Ears, nose, mouth, throat: DENIES: Hearing loss Respiratory: DENIES: Apneas Cardiovascular: DENIES: Chest pain Gastrointestinal: COMPLAINS OF: Abdominal pain, Nausea, DENIES: Diarrhea, Vomiting Genitourinary: DENIES: Urinary frequency Musculoskeletal: DENIES: Joint pain Integumentary: DENIES: Abnormal pigmentation Hematologic/lymphatic: DENIES: Bruising Immunologic/allergic: DENIES: Eczema Neurologic: DENIES: Headache, Localized weakness Psychiatric: DENIES: Mood changes, Depression, Hallucinations Past Family Social History Past Medical History None Past Surgical History None Reported Medications None Allergies: Coded Allergies: No Known Allergies (Verified , 02/06/17) Active Ordered Medications Current Medications Medications (Trade) Dose Ordered Sig/Evelin Route Start Time Stop Time Status Last Admin (NS Flush) 2 ml UNSCH PRN IV FLUSH 02/06/17 10:30 Sodium Chloride 1,000 ml @ 125 mls/hr Q8H IV 02/06/17 13:15 (NS Flush) 2 ml BID IV FLUSH 02/06/17 21:00 (NS Flush) 2 ml UNSCH PRN IV FLUSH 02/06/17 13:15 (Protonix Inj) 40 mg DAILY IV 02/07/17 09:00 Piperacillin Sod/ Tazobactam Sod 50 ml @ 100 mls/hr Q8H IV 02/06/17 14:00 (Morphine Inj) 2 mg Q3H PRN IV PUSH 02/06/17 13:15 02/06/17 14:15 Lactated Ringer's 1,000 ml @ 30 mls/hr Q24H PRN IV 02/06/17 15:30 02/09/17 15:29 Sodium Chloride 500 ml @ 30 mls/hr [id number] PRN IV 02/06/17 15:30 02/09/17 15:29 (Lopressor) 25 mg HANDLE BENDER PRN PO 02/06/17 15:30 02/09/17 15:29 (Betadine 5% Antisepsis Kit) 1 applic HANDLE BENDER PRN EACH NARE 02/06/17 15:30 02/09/17 15:29 (Chlorhexidine 2% Cloth) 3 pack HANDLE BENDER PRN TOPICAL 02/06/17 15:30 02/09/17 15:29 (NovoLIN R INJ) See Protocol Table ... HANDLE BENDER PRN SQ 02/06/17 15:30 02/09/17 15:29 Family History Mother had appendicitis Social History Positive tobacco use--- one pack per day Positive EtOH use--- socially; not daily Denies illicit drug use Physical Exam Vital Signs Vital Signs Date Time Temp Pulse Resp B/P (MAP) Pulse Ox O2 Delivery O2 Flow Rate FiO2 02/06/17 14:18 02/06/17 14:16 70 20 96/54 (68) 100 02/06/17 09:44 98.2 84 16 140/86 (104) 98 Physical Exam GENERAL: 46 year old female resting in bed in mild distress. SKIN: Warm and dry. HEAD: Atraumatic. Normocephalic. EYES: Pupils equal and round. No scleral icterus. No injection or drainage. ENT: No nasal bleeding or discharge. Mucous membranes pink and moist. NECK: Trachea midline. CARDIOVASCULAR: Regular rate and rhythm. RESPIRATORY: No accessory muscle use. Clear to auscultation. Breath sounds equal bilaterally. GASTROINTESTINAL: Abdomen soft, nondistended. RLQ tenderness with palpation. No visible scars or hernias. MUSCULOSKELETAL: Extremities without clubbing, cyanosis, or edema. No obvious deformities. NEUROLOGICAL: Awake and alert. No obvious cranial nerve deficits. Motor grossly within normal limits. Five out of 5 muscle strength in the arms and legs. Normal speech. PSYCHIATRIC: Appropriate mood and affect; insight and judgment normal. Laboratory Laboratory Tests Test 02/06/17 10:42 02/06/17 11:03 White Blood Count 17.7 Red Blood Count 4.35 Hemoglobin 12.5 Hematocrit 38.4 Mean Corpuscular Volume 88.2 Mean Corpuscular Hemoglobin 28.8 Mean Corpuscular Hemoglobin Concent 32.6 Red Cell Distribution Width 14.0 Platelet Count 283 Mean Platelet Volume 8.9 Neutrophils (%) (Auto) 84.4 Lymphocytes (%) (Auto) 7.1 Monocytes (%) (Auto) 8.0 Eosinophils (%) (Auto) 0.2 Basophils (%) (Auto) 0.3 Neutrophils # (Auto) 15.0 Lymphocytes # (Auto) 1.3 Monocytes # (Auto) 1.4 Eosinophils # (Auto) 0.0 Basophils # (Auto) 0.1 CBC Comment DIFF FINAL Differential Comment Blood Urea Nitrogen 11 Creatinine 0.88 Random Glucose 105 Total Protein 7.1 Albumin 3.8 Calcium Level 8.5 Alkaline Phosphatase 67 Aspartate Amino Transf (AST/SGOT) 10 Alanine Aminotransferase (ALT/SGPT) 30 Total Bilirubin 0.5 Sodium Level 136 Potassium Level 3.9 Chloride Level 104 Carbon Dioxide Level 23.7 Anion Gap 8 Estimat Glomerular Filtration Rate 70 Lipase 75 Urine Color YELLOW Urine Turbidity HAZY Urine pH 7.5 Urine Specific [place] 1.016 Urine Protein TRACE Urine Glucose (UA) NEG Urine Ketones 10 Urine Occult Blood NEG Urine Nitrite NEG Urine Bilirubin NEG Urine Urobilinogen LESS THAN 2.0 Urine Leukocyte Esterase NEG Urine RBC 3 Urine WBC 1 Urine Squamous Epithelial Cells 4 Urine Bacteria RARE Urine Mucus FEW Urine Yeast (Budding) RARE Microscopic Urinalysis Comment CULT NOT INDICATED Result Diagram: 02/06/17 1042 02/06/17 1042 Imaging Last 48 hours Impressions Abdomen/Pelvis CT 02/06/17 1020 Signed Impressions: Service Date/Time: January 11:07 - CONCLUSION: 1. 5 mm appendicolith with very minimal dilatation of the appendix and minimal periappendiceal inflammatory change. Findings are characteristic of an early or mild appendicitis. No obstruction, free fluid or free air. MD Trinidad Tom VTE Risk Assessment Jairrindeandre VTE Risk Assessment: No/Low Risk (score <= 1) Caprini Risk Assessment Model Point Value = 1 Point Value = 2 Point Value = 3 Point Value = 5 Age 41-60 Minor surgery BMI > 25 kg/m2 Swollen legs Varicose veins or History of unexplained or recurrent spontaneous Oral contraceptives or hormone replacement Sepsis (< 1 month) Serious lung disease, including pneumonia (< 1 month) Abnormal pulmonary function Acute myocardial infarction Congestive heart failure (< 1 month) History of inflammatory bowel disease Medical patient at bed rest Age 61-74 Arthroscopic surgery Major open surgery (> 45 min) Laparoscopic surgery (> 45 min) Malignancy Confined to bed (> 72 hours) Immobilizing plaster cast Central venous access Age >= 75 History of VTE Family history of VTE Factor V Leiden Prothrombin [id number] Lupus anticoagulant Anticardiolipin antibodies Elevated serum homocysteine Heparin-induced thrombocytopenia Other congenital or acquired thrombophilia Stroke (< 1 month) Elective arthroplasty Hip, pelvis, or leg fracture Acute spinal cord injury (< 1 month) Prophylaxis Regimen Total Risk Factor Score Risk Level Prophylaxis Regimen 0-1 Low Early ambulation 2 Moderate Order ONE of the following: *Sequential Compression Device (SCD) *Heparin 5000 units SQ BID 3-4 Higher Order ONE of the following medications: *Heparin 5000 units SQ TID *Enoxaparin/Lovenox 40 mg SQ daily (WT < 150 kg, CrCl > 30 mL/min) *Enoxaparin/Lovenox 30 mg SQ daily (WT < 150 kg, CrCl > 10-29 mL/min) *Enoxaparin/Lovenox 30 mg SQ BID (WT < 150 kg, CrCl > 30 mL/min) AND/OR *Sequential Compression Device (SCD) 5 or more Highest Order ONE of the following medications: *Heparin 5000 units SQ TID (Preferred with Epidurals) *Enoxaparin/Lovenox 40 mg SQ daily (WT < 150 kg, CrCl > 30 mL/min) *Enoxaparin/Lovenox 30 mg SQ daily (WT < 150 kg, CrCl > 10-29 mL/min) *Enoxaparin/Lovenox 30 mg SQ BID (WT < 150 kg, CrCl > 30 mL/min) AND *Sequential Compression Device (SCD) Assessment and Plan Assessment and Plan 46 year old female with early acute appendicitis -Plan for laparoscopic appendectomy this afternoon with Dr. Austin -NPO -Obtain consents -Continue Zosyn -IVF -Pain control I CERTIFY AND ATTEST THAT I PERSONALLY EXAMINED THE PATIENT. MISS JUAREZ DOCUMENTED OUR VISIT. RECOMMENDED IMMEDIATE APPENDECTOMY. PATIENT AGREES. OR NOTIFIED. MCKAYLA AUSTIN MD FACS Discussed Condition With Dr. Austin Bernice MS3 Ms. Acevedo + Mother at bedside Laure Juarez Feb 06, 2017 15:56 Mckayla Austin MD Feb 14, 2017 14:23
[2017-02-06] MEDS ORDERED: BUPIVACAINE/EPINEPHRINE 0.25% 50 ML VIAL ONE (16:11)
[2017-02-06] MEDS ORDERED: ACETAMINOPHEN 1000 MG/100 ML 100 ML IV ONE (18:09)
[2017-02-06] MEDS ORDERED: ONDANSETRON HCL 4 MG/2 ML VIAL IV PRN (18:45)
[2017-02-06] MEDS ORDERED: Post-op Orders (for Pharmacy) MISC XX ONE (18:45)
[2017-02-06] MEDS ORDERED: KETOROLAC TROMETHAMINE 30 MG/ML (IVP) VIAL IVP PRN (18:45)
[2017-02-06] MEDS ORDERED: diphenhydrAMINE HCL 25 MG CAP PO PRN (18:45)
[2017-02-06] MEDS ORDERED: SODIUM CHLORIDE 0.9% FLUSH 5 ML FLUSH IVF PRN (18:45)
[2017-02-06] MEDS ORDERED: NALOXONE HCL 0.4 MG/ML AMP IV PRN (18:45)
[2017-02-06] MEDS ORDERED: ACETAMINOPHEN/HYDROcodone 325 MG/5 MG TAB PO PRN ×2 (18:45)
[2017-02-06 19:00] VITALS: TEMP 99.3
[2017-02-06 19:45] VITALS: BP 106/69; PULSE 76; RESP 18; O2SAT 97
[2017-02-06] MEDS ORDERED: NORC5TAB PO (20:35)
[2017-02-06] MEDS ORDERED: SODIUM CHLORIDE 0.9% FLUSH 10 ML FLUSH IV FLUSH SCH (21:00)
[2017-02-06] MEDS ORDERED: SODIUM CHLORIDE 0.9% FLUSH 5 ML FLUSH IVF SCH (21:00)
--- NOTE | 2017-02-07 05:53 | MP ---
cc: MCKAYLA AUSTIN M.D. DATE OF SURGERY 02/06/2017 PREOPERATIVE DIAGNOSIS Acute appendicitis. POSTOPERATIVE DIAGNOSIS Acute appendicitis. PROCEDURE PERFORMED Laparoscopic appendectomy. SURGEON Mckayla Austin MD [employer]OM[employer]IVE [employer]ESSORY INSTALLER Vianey Acevedo, MS III ANESTHESIA General endotracheal COMPLICATIONS None. INDICATION FOR PROCEDURE Ms. Acevedo is a pleasant 46-year-old female who presented to the emergency apartment this afternoon complaining of a 12-hour history of right lower quadrant abdominal pain. She was seen, evaluated and worked up. She was found have acute appendicitis on CT scan. She is noted have an elevated white count and right lower quadrant tenderness. Surgical consultation was requested. The patient was seen in the emergency apartment and advised to undergo appendectomy. The risks and benefits of a laparoscopic or possible open appendectomy was discussed with her and she was agreeable. DETAILS The patient was identified, brought to the operating, placed supine on the operating table. After adequate general endotracheal anesthesia was achieved, the abdomen was prepped and draped in standard surgical fashion. The supraumbilical space was anesthetized with 0.25% Marcaine. Supraumbilical incision was made. Dissection was carried down in the subcutaneous tissue to midline fascia. The midline fascia was incised sharply. A finger was then placed in the peritoneal cavity without difficulty. Blunt balloon trocar was inserted and the abdomen was insufflated to 15 mm using CO2 gas. Next two 5-mm trocars were placed in the lower midline under direct vision after anesthetizing the skin and subcutaneous tissue with 0.25% Marcaine. Attention was directed to the right lower quadrant where distended and inflamed appendix was identified. The appendix then grasped and elevated superiorly. The appendiceal mesentery was then taken down with the harmonic scalpel. Once the cecal base was achieved, two 2-0 Vicryl Endoloops were placed on the cecal base. A single Endoloop was placed on the appendix and the appendix was then transected off the cecal base. The appendix was placed into an Endopouch bag and brought out through the supraumbilical port. The appendix was sent to pathology. Next the abdominal cavity was rinsed out with 1 liter of warm saline solution. The cecal base was inspected. The Endoloops were grasped and pulled on and they were tight with no evidence of leak. The stump was copiously area irrigated out. All irrigant was then removed from the abdominal cavity. The cecum was returned to its anatomic position in the right lower quadrant. Omentum was placed over the cecal base. All ports were removed under direct vision. The midline fascia was repaired with 0 Vicryl in [id number] fashion. The skin was closed with 4-0 Vicryl. The patient tolerated the procedure well, was awakened and brought to Recovery in stable condition. Mckayla MD LISE Austin/ERLIN /6:46 PM /5:37 AM
[2017-02-07] MEDS ORDERED: PANTOPRAZOLE SODIUM 40 MG VIAL IV SCH (09:00)
== END 2017-02-06 21:00 | disposition home or self-care (01) ==
LOC: NEPD 09:41 → INTOOBSV 12:23 → NEDA 12:23
PROVIDERS: ADMIT Surgery Trauma Surgery; ATTEND Surgery Trauma Surgery
DX: K35.80 Unspecified acute appendicitis (principal); F17.200 Nicotine dependence, unspecified, uncomplicated
CPT/HCPCS: 00840; 44970; 74176; 80053; 81001; 83690; 84703; 85025; 88304; 96365; 96366; 96375; 96376; 99285; G0378; J0131; J1100; J1885; J2270; J2370; J2405; J2543; J2710; J3010; J7120